=== PATIENT | female | born 1945 | race Caucasian/White ===

== ENCOUNTER 2016-12-06 20:47 | Emergency (ER) | payer BC ==
[2015-08-22 13:26] VITALS: BMI 28.2
[~2016-12-06 20:47] MED LIST: ABILIFY15 MG PO; ANASTROZOLE1 MG PO; CITRACAL + D E1 EACH PO; DESERYL100 MG PO; DIGESTIVE ENZYME; HERBALIFE; HYDROCODONE-APA1 TAB PO; KLONOPIN0.5 MG PO; MELATONIN 3 MG1 TAB PO; POTASSIUM99 M1 PO; PROBIOTIC1 EAC1 PO; PROTONIX40 MG PO; VIIBRYD40 MG PO; VITAMIN D5000 UNIT PO
[2016-12-06 21:53] LABS: BASOPHILS 0.5 % (0.0-2.0); HEMATOCRIT 36.8 % (36.0-48.0); HEMOGLOBIN 11.8 g/dL (12-16); IMMATURE GRANULOCYTES 0.2 % (0-5); LYMPHOCYTES 25.8 % (15-50); MCH 30.6 pg (26.0-34.0); MCHC 32.1 g/dL (31.0-37.0); MCV 95.6 fL (80.0-100.0); MEAN PLATELET VOLUME 9.9 fL (7.4-10.4); MONOCYTES 10.9 % (2-11); NEUTROPHILS 46.6 % (40-80); PLATELET COUNT 253 10x3/uL (130-400); RBC 3.85 10x6/uL (4.00-5.40); RDW 14.9 % (11.5-14.5); WBC 5.7 10x3/uL (4.8-10.8)
[2016-12-06 22:01] LABS: ALBUMIN 3.4 g/dL (3.4-5.0); ANION GAP 14.5 mmol/L (8-16); BILIRUBIN - TOTAL 0.2 mg/dL (0.2-1.3); CALCIUM 9.1 mg/dL (8.5-10.1); CARBON DIOXIDE 25.6 mmol/L (21.0-32.0); CREATININE - SERUM 1.3 mg/dL (0.6-1.3); MAGNESIUM - SERUM 1.7 mg/dL (1.8-2.4); POTASSIUM - SERUM 4.1 mmol/L (3.5-5.1); PROTEIN - SERUM 8.1 g/dL (6.4-8.2)
[2016-12-06 23:49] LABS: APPEARANCE CLOUDY (CLEAR); BILIRUBIN NEGATIVE (NEGATIVE); COLOR YELLOW (YELLOW); GLUCOSE NEGATIVE (NEGATIVE); KETONE NEGATIVE (NEGATIVE); LEUKOCYTE ESTERASE 2+ (NEGATIVE); NITRITE NEGATIVE (NEGATIVE); PROTEIN TRACE mg/dL (NEGATIVE); UROBILINOGEN NORMAL (NORMAL)
[2016-12-06 23:50] LABS: BACTERIA MODERATE /hpf (NONE SEEN); EPITHELIAL CELLS 0-5 /hpf (0-5); WHITE CELLS - URINE >50 /hpf (0-5)
== END 2016-12-07 01:05 | disposition home or self-care (01) ==
LOC: D.ER 20:47
PROVIDERS: Emergency Medicine
DX: R10.9 Unspecified abdominal pain (principal); K59.00 Constipation, unspecified; C50.919 Malignant neoplasm of unspecified site of unspecified female breast; F32.9 Major depressive disorder, single episode, unspecified

== ENCOUNTER → 2017-08-23 14:09 | Outpatient (CLI) | payer BC ==
[2015-08-22 13:26] VITALS: BMI 28.2
[~2017-08-23 14:09] MED LIST changes: +BUPROPION HCL100 MG PO; +LATUDA40 MG PO; +MERTAZAPINE PO; +PROZAC40 MG PO; +RELPAX40 MG PO; +VOLTAREN75 MG PO; +ZOFRAN4 MG
== END | disposition home or self-care (01) ==
LOC: D.LABREF 14:09
DX: R19.7 Diarrhea, unspecified (principal)

== ENCOUNTER 2017-08-27 19:25 | Emergency (ER) | payer BC ==
[2015-08-22 13:26] VITALS: BMI 28.2
[~2017-08-27 19:25] MED LIST changes: -BUPROPION HCL100 MG PO; -LATUDA40 MG PO; -MERTAZAPINE PO; -PROZAC40 MG PO; -RELPAX40 MG PO; -VOLTAREN75 MG PO; -ZOFRAN4 MG
[2017-08-27 20:32] LABS: HEMATOCRIT 37.1 % (36.0-48.0); HEMOGLOBIN 12.3 g/dL (12-16); MCH 31.2 pg (26.0-34.0); MCHC 33.2 g/dL (31.0-37.0); MCV 94.2 fL (80.0-100.0); MEAN PLATELET VOLUME 10.1 fL (7.4-10.4); PLATELET COUNT 234 10x3/uL (130-400); RBC 3.94 10x6/uL (4.00-5.40); WBC 10.6 10x3/uL (4.8-10.8)
[2017-08-27 20:56] LABS: ALBUMIN 3.4 g/dL (3.4-5.0); ANION GAP 15.7 mmol/L (8-16); BILIRUBIN - TOTAL 0.3 mg/dL (0.2-1.3); CALCIUM 10.2 mg/dL (8.5-10.1); CARBON DIOXIDE 22.8 mmol/L (21.0-32.0); CREATININE - SERUM 1.8 mg/dL (0.6-1.3); POTASSIUM - SERUM 4.5 mmol/L (3.5-5.1); PROTEIN - SERUM 7.9 g/dL (6.4-8.2)
[2017-08-27 21:01] LABS: EOSINOPHILS 42 % (0-7); LYMPHOCYTES 16 % (15-50); MONOCYTES 7 % (2-11); NEUTROPHILS 34 % (40-80); PLATELET ESTIMATE NORMAL
[2017-08-27 21:54] LABS: APPEARANCE HAZY (CLEAR); BILIRUBIN NEGATIVE (NEGATIVE); COLOR YELLOW (YELLOW); GLUCOSE NEGATIVE (NEGATIVE); KETONE NEGATIVE (NEGATIVE); NITRITE NEGATIVE (NEGATIVE); PROTEIN TRACE mg/dL (NEGATIVE); UROBILINOGEN NORMAL (NORMAL)
[2017-08-27 21:56] LABS: RED CELLS - URINE 0-5 /hpf (0-5)
[2017-08-27 21:58] LABS: BACTERIA MANY /hpf (NONE SEEN); EPITHELIAL CELLS 0-5 /hpf (0-5)
== END 2017-08-28 00:04 | disposition home or self-care (01) ==
LOC: D.ER 19:25
PROVIDERS: Emergency Medicine Emergency Medical Services
DX: K52.9 Noninfective gastroenteritis and colitis, unspecified (principal)

== ENCOUNTER → 2017-09-18 12:34 | Outpatient (CLI) | payer BC ==
[2015-08-22 13:26] VITALS: BMI 28.2
[~2017-09-18 12:34] MED LIST changes: +BUPROPION HCL100 MG PO; +LATUDA40 MG PO; +MERTAZAPINE PO; +PROZAC40 MG PO; +RELPAX40 MG PO; +VOLTAREN75 MG PO; +ZOFRAN4 MG
== END | disposition home or self-care (01) ==
LOC: D.RAD 12:34
DX: K59.00 Constipation, unspecified (principal)

== ENCOUNTER 2017-09-26 16:26 | Inpatient (IN) | payer MEDICARE, BC ==
[~2017-09-26] VITALS: Ht 162.6 cm; Wt 74.1 kg
[~2017-09-26 16:26] MED LIST changes: -BUPROPION HCL100 MG PO; -LATUDA40 MG PO; -MERTAZAPINE PO; -PROZAC40 MG PO; -RELPAX40 MG PO; -VOLTAREN75 MG PO; -ZOFRAN4 MG
[2017-09-26] MEDS ORDERED: BUPROPION HCL100 MG PO (22:54)
[2017-09-26] MEDS ORDERED: PROZAC40 MG PO (22:56)
[2017-09-26] MEDS ORDERED: VOLTAREN75 MG PO (22:57)
--- NOTE | 2017-09-26 23:19 | NUR ---
CALLED ER ADMISSIONS TO HAVE VALUABLES LOCKED UP FOR PT...WAS TOLD THAT NO ONE WILL HAVE ACCESS TO SAFE TILL 9AM. PT INFORMED.
[2017-09-26 23:20] VITALS: BP 122/78; BMI 26.5
[2017-09-26] MEDS ORDERED: MERTAZAPINE PO (23:20)
--- NOTE | 2017-09-26 23:33 | NUR ---
RN NOTE: ADMISSION ASSESSMENT COMPLETE.
--- NOTE | 2017-09-27 00:39 | NUR ---
PATIENT ADMITED FROM ER, STABLE. C/O OF LOOSE BM AND POSSIBLE UTI. BED ALARM ON, SCD's ON, BED IN LOWEST LOCK POSITION, CALL LIGHT WITHIN REACH, x3 BED RAILS UP, USES BEDPAN FOR BMs AND VOIDS. NO NEEDS NOTED AT THIS TIME
[2017-09-27 05:17] LABS: BASOPHILS 0 % (0-2); HEMATOCRIT 32.9 % (36.0-48.0); HEMOGLOBIN 10.5 g/dL (12-16); IMMATURE GRANULOCYTES 0.3 % (0-5); LYMPHOCYTES 11.9 % (15-50); MCH 29.6 pg (26.0-34.0); MCHC 31.9 g/dL (31.0-37.0); MCV 92.7 fL (80.0-100.0); MEAN PLATELET VOLUME 10.6 fL (7.4-10.4); NEUTROPHILS 74.8 % (40-80); RBC 3.55 10x6/uL (4.00-5.40); RDW 13.8 % (11.5-14.5); WBC 7.9 10x3/uL (4.8-10.8)
[2017-09-27 05:18] LABS: PLATELET COUNT 284 10x3/uL (130-400)
[2017-09-27 05:26] LABS: CALCIUM 9.5 mg/dL (8.5-10.1); CARBON DIOXIDE 21.3 mmol/L (21.0-32.0); CREATININE - SERUM 2.2 mg/dL (0.6-1.3); POTASSIUM - SERUM 4.3 mmol/L (3.5-5.1)
--- NOTE | 2017-09-27 07:50 | NUR ---
ASSESSMENT COMPLETE. IV TO L HAND PATENT. NS INFUSING AT 125 CC/HR VIA PUMP. SPLINT/MAGNO WRAP DRESSING IN USE TO L ARM. SPLINT IN USE TO R WRIST. NPO FOR SURGERY TODAY.DENIES ANY NEEDS AT THIS TIME.
[2017-09-27 09:38] VITALS: BP 133/69
[2017-09-27 10:51] VITALS: Ht 162.6 cm; Wt 74.1 kg
--- NOTE | 2017-09-27 12:00 | NUR ---
NO CHANGES NOTED AT PRESENT. AWAITING SURGERY. DENIES ANY NEEDS AT THIS TIME.
[2017-09-27 13:41] VITALS: BP 121/68
--- NOTE | 2017-09-27 15:00 | NUR ---
OFF FLOOR TO SURGERY VIA BED. BELONGINGS IN CLOSET PER PATIENT REQUEST.
[2017-09-27 15:51] VITALS: BP 136/70
[2017-09-27 17:05] VITALS: BP 149/112
--- NOTE | 2017-09-27 17:10 | NUR ---
RETURNED TO ROOM FROM RECOVERY ROOM VIA BED. IV TO R FOOT PATENT. MAGNO WRAP DRESSING TO LEFT ARM. SLING IN USE TO LEFT ARM. SCD IN USE TO R LEG. BP CUFF IN USE TO LEFT LEG.
--- NOTE | 2017-09-27 18:00 | NUR ---
VSS. EATING DINNER. DENEIS ANY NEEDS AT THIS TIME.
--- NOTE | 2017-09-27 18:40 | NUR ---
LATE ENTRY- OPERATIVE DAY, RETURNED TO ROOM LATE PM. PAIN MANGEMENT. CM CONSULT RECEIVED. CM WILL F/U IN AM.
--- NOTE | 2017-09-27 19:15 | NUR ---
RECEIVED CARE FROM DAY NURSE. PT IN HIGH FOWLERS POSITOIN. IV TO RIGHT FOOT PATENT. LEFT ARM IN MAGNO WRAP AND SLING. RIGHT ARM IN BRACE. REQUEST NIGHT MEDS SOON POSSIBLE. NO OTHER NEEDS VOICED AT THIS TIME. CALL LIGHT AT SIDE.
[2017-09-27 20:00] VITALS: BP 120/81
[2017-09-28] VITALS: BP 104/65
--- NOTE | 2017-09-28 02:57 | NUR ---
PT LYING IN BED IN LOW FOWLERS POSITION. EYES CLOSED. RESP EVEN AND UNLABORED. CALL LIGHT AT SIDE.
[2017-09-28 04:00] VITALS: BP 129/65
--- NOTE | 2017-09-28 07:40 | NUR ---
ASSESSMENT COMPLETE. IV TO R FOOT PATENT. NS INFUSING AT KVO VIA PUMP. MAGNO WRAP DRESSING C/D/I TO L ARM. BRACE IN USE TO R ARM. HAVING LOOSE STOOLS. REFUSING TO WEAR SCD'S. DENIES ANY NEEDS AT THIS TIME.
[2017-09-28 08:15] VITALS: BP 145/65
--- NOTE | 2017-09-28 09:55 | NUR ---
ZOFRAN GIVEN SLOW IVP FOR COMPLAINT OF "UPSET STOMACH."
--- NOTE | 2017-09-28 12:00 | NUR ---
NO CHANGES NOTED AT PRESENT.
[2017-09-28 12:41] VITALS: BP 176/71
--- NOTE | 2017-09-28 13:24 | NUR ---
LATE ENTRY [id number] PATIENT'S FRIEND, MS JULIETH LIMA, LEFT A NOTE FOR CM TO CALL. SHE IS CONCERNED THAT THE PATIENT WILL BE DISCHARGED TO HOME. SHE LIVES ALONE. HER FAMILY IS IN [place]. HER DAUGHTER HAS SOME MEDICAL ISSUES HERSELF. SHE HAD DISCUSSED WITH THE PATIENT HER GOING TO [facility] FOR SKILLED CARE. CM ADVISED I WOULD SPEAK WITH THE PATIENT AND HER FAMILY TO DETERMINE THE D/C PLAN. MS SEXTON STATES SHE HAS PLACED THE FAMILY CONTACT INFORMATION ON THE BOARD IN THE PATIENT'S ROOM. JULIETH LIMA CELL [phone] HOME [phone]. CM TO FOLLOW. [phone] HDEZ ON HIS ROUNDS.
--- NOTE | 2017-09-28 15:00 | NUR ---
DENIES ANY NEEDS AT THIS TIME.
[2017-09-28 16:40] VITALS: BP 149/56
--- NOTE | 2017-09-28 17:00 | NUR ---
NOT WANTING TO EAT DINNER. STATES THAT EVERYTHING SHE EATS RUNS THROUGH HER CAUSING DIARRHEA. REPORTS HAVING CHRONIC DIARRHEA SINCE .
[2017-09-28 20:00] VITALS: BP 146/66
--- NOTE | 2017-09-28 21:46 | NUR ---
REC'D LYING IN BED. ALERT AND ORIENTED X4. DENIED PAIN AT THIS TIME. NO DISTRESS NOTED. WAS ON THE BEDPAN TOOK OFF. INSTRUCTED TO CALL IF NEEDED ANYTHING, VERBALIZED UNDERSTANDING. BED LOW, LOCKED, CALL LIGHT IN REACH. WILL CONT TO MONITOR.
--- NOTE | 2017-09-29 03:24 | NUR ---
PT RESTING QUIETLY, EYES CLOSED. RESP EVEN, UNLABORED. NO DISTRESS NOTED. CONTINUE [facility] COMMISSIONER'S PLAN OF CARE.
--- NOTE | 2017-09-29 07:15 | NUR ---
REPORT RECEIVED, ASSUMED CARE OF PT. RESTING WITH EYES SHUT, EASILY AROUSED. NO NEEDS VOICED AT THIS TIME. R FOOT IV INFUSING FLUIDS ORDERED, DRSG C/D/I. BED IN LOWEST POSITION, SIDE RAILS UP X 2, CALL LIGHT WITHIN REACH.
[2017-09-29 08:10] VITALS: BP 117/69
[2017-09-29] MEDS ORDERED: HYDROCODONE-APA1 TAB PO (08:23)
--- NOTE | 2017-09-29 09:39 | NUR ---
Is the patient Alert and Oriented? Yes 0 * How many steps to enter\exit or inside your home? NONE 0 * PCP DR MARTINEZ 0 * Pharmacy [facility] 0 * Preadmission Environment Home Alone 0 * ADLs Independent 0 * Equipment None 0 * Other Equipment N/A 0 * List name and contact numbers for known caregivers / representatives who currently or will assist patient after discharge: HAS A DAUGHTER AND SON IN LAW IN [place] 0 * Community resources currently utilized Home Health 0 * Please name any agencies selected above. [facility] 0 * Additional services required to return to the preadmission environment? Yes 0 * Can the patient safely return to the preadmission environment? No 0 * Has this patient been hospitalized within the prior 30 days at any hospital? No 0
--- NOTE | 2017-09-29 09:42 | NUR ---
CM MET WITH PATIENT AT THE BEDSIDE. SHE FEELS SHE CANNOT MANAGE AT HOME POST DISCHARGE SHE LIVES ALONE. SHE HAD SUFFERED A SHOULDER INJURY TO THE RIGHT SHOULDER AND WAS RECEIVING HOME HEALTH PHYSICAL THERAPY W/ [facility]. HER DAUGHTER AND SON IN LAW LIVE IN [place]. MR SAUL MATTA, SON IN LAW, HAD CALLED AND LEFT A MESSAGE 09/28/17 PM. HIS CONTACT PHONE NUMBER IS [phone]. THE PATIENT STATES CM CAN SPEAK WITH HIM. PCP- DR NERI MARTINEZ. [facility] MUSE SHE WOULD LIKE TO GO TO [facility] AT DISCHARGE. TC TO [facility] THIS AM. LEFT VOICE MAIL FOR [facility]. FAXED REFERRAL. AWAIT DECISION.
[2017-09-29 11:23] VITALS: BP 144/63
--- NOTE | 2017-09-29 13:37 | NUR ---
NUTRITION F/U CHART REVIEWED. PT VISIT. PT REPORTS DIARRHEA SINCE JUL. REQUESTED PEDIALYTE STATING SHE CAN NOT EAT "EVERYTHING GOES RIGHT THRU ME AND THE NURSES DON'T LIKE IT". PT ALSO REPORTS SHE HAS HAD TEST'S RUN WITH NO DX OF YET. PROVIDED PEDIALYTE. WILL MONITOR PT PROGRESS. NOW ASSESSED AT NUTRITIONAL RISK. NUTRITIONAL NEEDS EST USING IBW. [phone] KCAL, 55-[address] RD FOLLOWING
--- NOTE | 2017-09-29 17:13 | NUR ---
LATE ENTRY 1258 TC TO PATIENT' SON IN LAW , J. SITES , AT [phone]. NO ANSWER. LEFT VOICE MAIL. [facility] TO UPDATE SON IN LAW ON D/C PLAN. PATIENT WAS INITIALLY DECLINED FOR [facility]. THEY DO NOT ACCEPT [facility]. [facility] SPOKE WITH THE PATIENT. SHE ALSO HAS MEDICARE A. EL[facility]IA CALLED TO [facility]ISE [facility]. 1500 REC CB FROM [facility]. ADDITIONAL NOTES FAXED FROM THERAPIES. SHE WILL ADVISE IN THE AM.
--- NOTE | 2017-09-29 19:30 | NUR ---
RECIEVED SHIFT REPORT. PT IS LYING IN BED. ALERT AND ORIENTED AND ABLE TO VERBALIZE NEEDS. IV IS PATENT AND FLUIDS ARE RUNNING PER ORDER. O2 @ 2 PER NASAL CANNULA. PT IS AMBULATORY WITH ASSISTANCE. SCD'S OFF AT THIS TIME PER PT REQUEST. DRESSING TO LEFT WRIST C/D/I. BRACE NOTED TO RIGHT WRIST. PT STATES PAIN IS 2/10. NO NEEDS ARE VERBALIZED AT THIS TIME. WILL CONTINUE TO MONITOR. SIDE RAILS ARE UP X 2. BED IS IN LOWEST POSITION. BED ALARM IS ON FOR SAFETY. CALL LIGHT IS WITHIN REACH.
[2017-09-29 20:00] VITALS: BP 132/89
--- NOTE | 2017-09-29 21:27 | NUR ---
SHIFT ASSESSMENT COMPLETED. NIGHT MEDS GIVEN WITH NO PROBLEMS. NO NEEDS ARE VOICED. WILL MONITOR. SIDE RAILS X 2. BED LOW. BED ALARM ON. CALL LIGHT IN REACH.
[2017-09-30 04:00] VITALS: BP 122/80
--- NOTE | 2017-09-30 09:15 | NUR ---
REPORT RECIEVED ASSUMED CARE. PATIENT IN BED WITH IV INTACT. NO COMPLAINTS AT THIS TIME. [facility]
[2017-09-30 09:30] VITALS: BP 162/79
--- NOTE | 2017-09-30 11:45 | NUR ---
PATIENT STILL HAVING DIARRHEA. STATED SHE CALLED DR. VARGHESE OFFICE AND LEFT A MESSAGE BC THE DIARRHEA SHE HAS IS CHRONIC AND THEY HAVE BEEN WORKING ON IT. IV INTACT. DRESSING TO RIGHT ARM CDI. NO COMPLAINTS OR PROBLEMS. CALL LIGHT WITHIN REACH.
[2017-09-30 12:15] VITALS: BP 100/82
[2017-09-30 16:08] VITALS: BP 128/69
--- NOTE | 2017-09-30 18:31 | NUR ---
PATIENT IN BED WITH IV INTACT. NO COMPLAINTS AT THIS TIME. CALL LIGHTW ITHIN REACH.
--- NOTE | 2017-09-30 19:25 | NUR ---
RECIEVED SHIFT REPORT. PT IS LYING IN BED. ALERT AND ORIENTED AND ABLE TO VERBALIZE NEEDS. IV IS PATENT AND FLUIDS ARE RUNNING PER ORDER. O2 @ 2 PER NASAL CANNULA. DRESSING TO LEFT WRIST C/D/I. BRACE TO RIGHT WRIST. PT IS AMBULATORY WITH ASSISTANCE. PT REQUESTS SCD'S OFF AT THIS TIME DUE TO FREQUENT DIARRHEA. PT STATES PAIN IS 2/10. NO NEEDS ARE VERBALIZED AT THIS TIME. WILL CONTINUE TO MONITOR. SIDE RAILS ARE UP X 2. BED IS IN LOWEST POSITION. BED ALARM IS ON FOR SAFETY. CALL LIGHT IS WITHIN REACH.
[2017-09-30 19:30] VITALS: BP 130/53
--- NOTE | 2017-09-30 21:26 | NUR ---
SHIFT ASSESSMENT COMPLETED. NIGHT MEDS GIVEN WITH NO PROBLEMS. PT REQUESTING PRN NORCO FOR PAIN 01/17. ADMINISTERED PER ORDER. DENIES FURTHER NEEDS. WILL MONITOR. SIDE RAILS X 2. BED LOW. BED ALARM ON. CALL LIGHT IN REACH.
[2017-10-01 03:30] VITALS: BP 149/77
--- NOTE | 2017-10-01 07:16 | NUR ---
Patient to discharged to [facility] this AM and they will picking tech at 10:30 to skilled bed. CM will follow and assist as needed with discharge planning needs
[2017-10-01 07:52] VITALS: BP 131/66
--- NOTE | 2017-10-01 09:33 | NUR ---
REPORT CALLED TO AISHA CONROY'Deny.
--- NOTE | 2017-10-01 09:47 | NUR ---
R FOOT IV D/C'D, WALTER C/D/I. DISCHARGE INSTRUCTIONS GIVEN TO PT, VERBALIZED UNDERSTANDING AND SIGNED.
--- NOTE | 2017-10-01 10:58 | NUR ---
PT LEFT FACILITY WITH [facility] VIA WHEELCHAIR, PERSONAL BELONGINGS WITH PT.
--- NOTE | 2017-12-13 13:11 | OP ---
PATIENT NAME: SAULO RICHARD MEDICAL RECORD: [id number] :46 LOCATION:D.[facility] ADMISSION DATE:09/28/17 SURGEON: SAUL HDEZ MD DATE OF OPERATION: 09/27/2017 PREOPERATIVE DIAGNOSIS: Left distal radius fracture. POSTOPERATIVE DIAGNOSIS: Left distal radius fracture. PROCEDURE: Open reduction internal fixation of left distal radius fracture. SURGEON: Saul Hdez MD ANESTHESIA: General. INTRAOPERATIVE COMPLICATIONS: None. SUMMARY OF PATHOLOGIC FINDINGS: The patient had a very reducible distal radius fracture that held nicely with the volar plate from Christopher. OPERATIVE SUMMARY IN DETAIL: After obtaining the appropriate preoperative orthopedic surgery consent as well as anesthetic consultation, evaluation and clearance, the patient was brought to the operating room and placed on the table in supine position. After general laryngeal mask airway was administered, tourniquet was placed about the proximal aspect of the left upper extremity. Left upper extremity was then prepped and draped in routine sterile fashion. The arm was elevated and exsanguinated, tourniquet inflated to 250 mmHg. Curvilinear incision was made from the mid palmar crease of the arm and keeping with Ollie's volar approach. Dissection was carried down to both the flexor carpal radialis as well as the transverse carpal ligament. Transverse carpal ligament was incised in its entirety with visual protection of the median nerve. Dissection was then carried down and the median nerve as well as wrist flexors were carefully retracted. The fracture was clearly identified. Reduction maneuver was performed. The volar plate from [place] was then put into place using fluoroscopic guidance. A serial and sequential drill and fill technique was used using a combination of both compression and locking screws. Final radiographs were taken and submitted for radiologist's review. At this point, the wound was copiously irrigated and closure was achieved with 2-0 Vicryl followed by 4-0 Prolene in running fashion. Sterile dressings were applied. A volar splint was applied. Tourniquet was deflated. The patient was awakened, taken to recovery room in stable condition. All final needle and sponge counts were correct. TRANSINT:[id number] Voice Confirmation ID: [id number] DOCUMENT ID: [id number] SAUL HDEZ MD at 1311 CC: [id number] DICTATION DATE: 12/08/17 0943 GENERAL UTILITY MAINTENANCE REPAIRER: 12/08/17 1258 DIS IN 10/01/17 [facility] [address] [place] [address]
== END 2017-10-01 10:58 | DRG 512 ==
LOC: D.ER 16:26 → OBSVTIME 21:08 → D.MS 21:08
PROVIDERS: Family Medicine; ADMIT Orthopaedic Surgery
PROC: 0PSH04Z Reposition Right Radius with Internal Fixation Device, Open Approach (ICD-10-PCS; principal; 2017-09-27 15:00)
DX: S52.501A Unspecified fracture of the lower end of right radius, initial encounter for closed fracture (principal); W19.XXXA Unspecified fall, initial encounter; Z91.81 History of falling; Y93.9 Activity, unspecified; Y92.009 Unspecified place in unspecified non-institutional (private) residence as the place of occurrence of the external cause; G62.9 Polyneuropathy, unspecified; N18.9 Chronic kidney disease, unspecified

== ENCOUNTER 2017-11-11 09:07 | Emergency (ER) | payer MEDICARE, BC ==
[2017-09-27 10:51] VITALS: BMI 26.4
[~2017-11-11 09:07] MED LIST changes: +BUPROPION HCL100 MG PO; +MERTAZAPINE PO; +PROZAC40 MG PO; +VOLTAREN75 MG PO
[2017-11-12] MEDS ORDERED: ZOFRAN4 MG (18:19)
[2017-11-12] MEDS ORDERED: LATUDA40 MG PO (19:24)
[2017-11-12] MEDS ORDERED: RELPAX40 MG PO (19:25)
== END 2017-11-11 12:25 | disposition home or self-care (01) ==
LOC: D.ER 09:07
DX: S16.1XXA Strain of muscle, fascia and tendon at neck level, initial encounter (principal); W19.XXXA Unspecified fall, initial encounter; Y93.89 Activity, other specified; Y92.019 Unspecified place in single-family (private) house as the place of occurrence of the external cause; S39.012A Strain of muscle, fascia and tendon of lower back, initial encounter

== ENCOUNTER 2017-11-12 11:01 | Inpatient (IN) | payer MEDICARE, BC ==
[~2017-11-12] VITALS: Ht 162.6 cm; Wt 69.9 kg
--- NOTE | ~2017-11-12 | CN ---
PATIENT NAME:SAULO RICHARD MEDICAL RECORD: [id number] : 47 LOCATION:[facility] ADMIT DATE: 11/12/17 ACCOUNT: [id number] CONSULTING PHYSICIAN: NERI MARTINEZ MD REFERRING PHYSICIAN: SAUL HDEZ MD DATE OF CONSULTATION: 11/12/2017 DATE OF CONSULTATION: 11/12/2017 REASON FOR CONSULTATION: Medical management. HISTORY OF PRESENT ILLNESS: This is a 72-year-old female who was seen in Dr. Hdez's clinic on day of admit for followup of left wrist fracture. She underwent ORIF of left wrist fracture on 09/27/2017 and was discharged to [facility]. She has been back at home now and she fell on 11/11/2017. She has complaints of neck pain, back pain, shoulder pain and wrist pain. X-rays at Dr. Hdez's office showed re-fracture of the left wrist and L-spine x-ray suspicious for a compression fracture. She is admitted for further evaluation and treatment. The left wrist will need revision ORIF. I am consulted for medical management. PAST MEDICAL HISTORY: The patient has a history of significant anxiety, depression, breast cancer, migraine headaches and arthritis. PAST SURGICAL HISTORY: Appendectomy, bilateral mastectomy, ORIF of the fifth finger from a fracture in July 2017 done in [place], and ORIF of left wrist fracture by Dr. Hdez as mentioned above. ALLERGIES: LATEX, NATURAL RUBBER, ATIVAN, CODEINE, LACTOSE, NEURONTIN. HOME MEDICATIONS: Include anastrozole 1 mg once a day, trazodone 300 mg at bedtime, clonazepam 2 mg at bedtime, Wellbutrin 100 mg once a day, Prozac 40 mg 2 pills a day, diclofenac 75 mg twice a day, Relpax 40 mg p.r.n. migraine headaches, Slovan 10/325 q.4 hours p.r.n. pain, Latuda 40 mg once a day, potassium gluconate 99 mg once a day, Citracal Plus D once a day, Zofran 4 mg q.6 hours p.r.n. nausea and vomiting, vitamin D3 5000 units twice a day, and Remeron 15 mg, give 7.5 mg at bedtime. SOCIAL HISTORY: She is , lives alone in [place]. FAMILY HISTORY: Father at 91. He had heart disease and prostate cancer. Mother is . She had heart disease and stroke. HABITS: No tobacco, alcohol or drugs. REVIEW OF SYSTEMS: GENERAL: No major weight changes. HEENT: No particular sinus or allergy problems. RESPIRATORY: No history of emphysema or asthma. She states she does have apnea, but does not use CPAP or BiPAP. CARDIAC: No history of heart disease. GASTROINTESTINAL: She has some reflux and has chronic diarrhea, followed by Dr. Palumbo. GENITOURINARY: No significant problems there. MUSCULOSKELETAL: She has lots of pain in her neck, back, legs. CONSULT REPORT [id number] [facility]IL[facility] NEUROLOGIC: She has migraine headaches. No seizures. PSYCHIATRIC: She has anxiety and depression. PHYSICAL EXAMINATION: VITAL SIGNS: Temperature 98.2, pulse 104, respirations 20, blood pressure 128/48, O2 saturation 100%. GENERAL: She is in some pain. Her IV has not been able to be established. HEENT: Grossly within normal limits. NECK: With generalized tenderness posteriorly, decreased range of motion to right and left turn, flexion and extension. HEART: Regular rate and rhythm. LUNGS: Fairly clear. ABDOMEN: Soft, nontender. EXTREMITIES: Left wrist is in a dressing and she has pain there, also pain in the right shoulder, neck, back. ASSESSMENT: 1. Anxiety. 2. Arthritis. 3. Left wrist fracture. 4. Fall at home with multiple areas of pain. PLAN: She has had an MRI done of the neck so far, it is the only report that is on the chart, showing some degenerative disk changes greatest at C3-C4, through C5-C6 and joint hypertrophy at C5 and C6. Other MRIs are pending. We will continue her usual medications. We will follow her through this hospitalization. Thank you for this consult. TRANSINT:[id number] Voice Confirmation ID: [id number] DOCUMENT ID: [id number] NERI MARTINEZ MD at 1843 CC: [id number] DICTATION DATE: 11/13/17 1349 TIMBER SETTER: 11/13/17 1504 ADM IN [id number] [place] [address]
--- NOTE | ~2017-11-12 | OP ---
PATIENT NAME: SAULO RICHARD MEDICAL RECORD: [id number] :46 LOCATION:D[facility] ADMISSION DATE:11/12/17 SURGEON: SAUL HDEZ MD DATE OF OPERATION: 11/19/2017 PREOPERATIVE DIAGNOSIS: Recurrent distal radius fracture, left. POSTOPERATIVE DIAGNOSIS: Recurrent distal radius fracture, left. PROCEDURE: Revision ORIF of the left distal radius with removal of previously placed hardware. SURGEON: Saul Hdez MD ANESTHESIA: General. INTRAOPERATIVE COMPLICATIONS: None. SUMMARY OF PATHOLOGIC FINDINGS: Unfortunately, when the patient fell and sustained a compression fracture to her back, she also has displaced the hardware thusly requiring a second internal fixation. IMPLANTS USED: Christopher VariAx short plate with a combination of locking and nonlocking screws. OPERATIVE SUMMARY IN DETAIL: After obtaining the appropriate preoperative orthopedic surgery consent as well as anesthetic consultation, evaluation and clearance, the patient was brought to the operating room and placed on the operating table in supine position. After general laryngeal mask airway was administered, tourniquet was placed in the proximal aspect of left upper extremity. Left upper extremity was then prepped and draped in routine sterile fashion. The arm was elevated and exsanguinated, tourniquet inflated to 250 mmHg. Previously utilized incision was utilized again, taken down to the level of the flexor carpi radialis, which was identified. The median nerve was identified. All were retracted and kept safe from harm's way through the case. The previously placed plate was removed. At this point, one of the screws had broken. However, it was identified on fluoro and removed itself. The fragments were then mobilized, rearranged back into a more anatomic position and then the Christopher narrow plate was put into place with a serial and sequential drill and fill technique using both locking and nonlocking screws for the ultimate compression and fixation. Final radiographs were submitted to radiology for review on both AP and lateral planes. Wound was copiously irrigated and closed with 2-0 Vicryl followed by 4-0 Prolene in running fashion. Sterile dressings were applied. The patient was awakened and taken to the recovery room in stable condition. All final needle and sponge counts were correct. TRANSINT:[id number] Voice Confirmation ID: [id number] DOCUMENT ID: [id number] OPERATIVE REPORT [id number] SAULO RICHARD MD, JAMES KEVIN at 1444 CC: [id number] DICTATION DATE: 11/20/17 1218 SPRING ASSEMBLER SUPERVISOR: 11/20/17 1412 DIS IN 11/20/17 [id number] [place] [address]
[2017-11-12 15:14] LABS: BASOPHILS 0 % (0-2); EOSINOPHILS 0.1 % (0-7); HEMATOCRIT 29.1 % (36.0-48.0); HEMOGLOBIN 9.4 g/dL (12-16); IMMATURE GRANULOCYTES 0.6 % (0-5); LYMPHOCYTES 5.8 % (15-50); MCHC 32.3 g/dL (31.0-37.0); MCV 89.8 fL (80.0-100.0); MEAN PLATELET VOLUME 9.4 fL (7.4-10.4); MONOCYTES 4.6 % (2-11); NEUTROPHILS 88.9 % (40-80); RBC 3.24 10x6/uL (4.00-5.40); RDW 16.9 % (11.5-14.5); WBC 13.6 10x3/uL (4.8-10.8)
[2017-11-12 15:19] LABS: PLATELET COUNT 356 10x3/uL (130-400)
[2017-11-12 15:25] LABS: ANION GAP 20.7 mmol/L (8-16); CALCIUM 10.2 mg/dL (8.5-10.1); CARBON DIOXIDE 19.9 mmol/L (21.0-32.0); CREATININE - SERUM 1.8 mg/dL (0.6-1.3); POTASSIUM - SERUM 3.6 mmol/L (3.5-5.1)
[2017-11-12 15:43] VITALS: BP 129/44; BMI 26.5
[2017-11-12 16:50] VITALS: BP 128/48
[2017-11-12] MEDS ORDERED: ZOFRAN4 MG (18:19)
[2017-11-12] MEDS ORDERED: LATUDA40 MG PO (19:24)
[2017-11-12] MEDS ORDERED: RELPAX40 MG PO (19:25)
[2017-11-13 04:00] VITALS: BP 131/62
[2017-11-13 05:19] LABS: BASOPHILS 0.1 % (0-2); EOSINOPHILS 2.1 % (0-7); HEMATOCRIT 28.2 % (36.0-48.0); HEMOGLOBIN 9.1 g/dL (12-16); IMMATURE GRANULOCYTES 0.5 % (0-5); LYMPHOCYTES 15.9 % (15-50); MCH 29.1 pg (26.0-34.0); MCHC 32.3 g/dL (31.0-37.0); MCV 90.1 fL (80.0-100.0); MEAN PLATELET VOLUME 9.4 fL (7.4-10.4); MONOCYTES 10.2 % (2-11); NEUTROPHILS 71.2 % (40-80); PLATELET COUNT 312 10x3/uL (130-400); RBC 3.13 10x6/uL (4.00-5.40); RDW 17.4 % (11.5-14.5); WBC 8.1 10x3/uL (4.8-10.8)
[2017-11-13 05:42] LABS: ANION GAP 13.8 mmol/L (8-16); CALCIUM 9.5 mg/dL (8.5-10.1); CREATININE - SERUM 1.5 mg/dL (0.6-1.3); POTASSIUM - SERUM 3.4 mmol/L (3.5-5.1)
[2017-11-13 05:55] LABS: CARBON DIOXIDE 25.6 mmol/L (21.0-32.0)
[2017-11-13 12:32] VITALS: BP 110/59
[2017-11-13 16:27] VITALS: BP 86/47
[2017-11-14 04:00] VITALS: BP 96/99
[2017-11-14 06:15] LABS: BASOPHILS 0.1 % (0-2); HEMATOCRIT 29.4 % (36.0-48.0); HEMOGLOBIN 9.1 g/dL (12-16); IMMATURE GRANULOCYTES 0.2 % (0-5); MCH 28.6 pg (26.0-34.0); MEAN PLATELET VOLUME 10.1 fL (7.4-10.4); MONOCYTES 8.5 % (2-11); NEUTROPHILS 74.2 % (40-80); PLATELET COUNT 350 10x3/uL (130-400); RBC 3.18 10x6/uL (4.00-5.40); RDW 17.4 % (11.5-14.5); WBC 8.2 10x3/uL (4.8-10.8)
[2017-11-14 06:16] LABS: MCV 92.5 fL (80.0-100.0)
[2017-11-14 06:38] LABS: ANION GAP 13.6 mmol/L (8-16); CALCIUM 9.1 mg/dL (8.5-10.1); CREATININE - SERUM 1.4 mg/dL (0.6-1.3); POTASSIUM - SERUM 3.6 mmol/L (3.5-5.1)
[2017-11-14 08:40] VITALS: BP 99/39
[2017-11-14 12:30] VITALS: BP 109/45
[2017-11-14 16:45] VITALS: BP 97/49
[2017-11-14 20:00] VITALS: BP 106/45
[2017-11-15 04:00] VITALS: BP 100/45
[2017-11-15 05:48] LABS: BASOPHILS 0.1 % (0-2); HEMATOCRIT 29.7 % (36.0-48.0); HEMOGLOBIN 9.3 g/dL (12-16); IMMATURE GRANULOCYTES 0.2 % (0-5); LYMPHOCYTES 11.3 % (15-50); MCH 28.8 pg (26.0-34.0); MCHC 31.3 g/dL (31.0-37.0); MEAN PLATELET VOLUME 9.9 fL (7.4-10.4); MONOCYTES 7.3 % (2-11); NEUTROPHILS 76.1 % (40-80); PLATELET COUNT 334 10x3/uL (130-400); RBC 3.23 10x6/uL (4.00-5.40); RDW 16.7 % (11.5-14.5); WBC 8.2 10x3/uL (4.8-10.8)
[2017-11-15 06:29] LABS: ANION GAP 12.6 mmol/L (8-16); CALCIUM 9.1 mg/dL (8.5-10.1); CREATININE - SERUM 1.2 mg/dL (0.6-1.3); POTASSIUM - SERUM 3.6 mmol/L (3.5-5.1)
[2017-11-15 08:49] VITALS: BP 109/46
[2017-11-15 11:59] VITALS: BP 107/68
[2017-11-15 20:00] VITALS: BP 128/72
[2017-11-16] VITALS: BP 130/68
[2017-11-16 04:00] VITALS: BP 113/38
[2017-11-16 04:52] LABS: BASOPHILS 0.1 % (0-2); EOSINOPHILS 6.8 % (0-7); HEMATOCRIT 28.5 % (36.0-48.0); IMMATURE GRANULOCYTES 0.3 % (0-5); LYMPHOCYTES 12.4 % (15-50); MCH 28.8 pg (26.0-34.0); MCHC 31.6 g/dL (31.0-37.0); MCV 91.1 fL (80.0-100.0); MEAN PLATELET VOLUME 9.6 fL (7.4-10.4); MONOCYTES 8.2 % (2-11); NEUTROPHILS 72.2 % (40-80); PLATELET COUNT 339 10x3/uL (130-400); RBC 3.13 10x6/uL (4.00-5.40); RDW 16.5 % (11.5-14.5); WBC 7.2 10x3/uL (4.8-10.8)
[2017-11-16 05:12] LABS: ANION GAP 13.3 mmol/L (8-16); CALCIUM 9.1 mg/dL (8.5-10.1); CARBON DIOXIDE 25.4 mmol/L (21.0-32.0); CREATININE - SERUM 1.1 mg/dL (0.6-1.3); POTASSIUM - SERUM 3.7 mmol/L (3.5-5.1)
[2017-11-16 08:15] VITALS: BP 112/50
[2017-11-16 11:59] VITALS: BP 100/37
[2017-11-16 16:12] VITALS: BP 98/43
[2017-11-16 20:00] VITALS: BP 109/55
[2017-11-17 04:00] VITALS: BP 105/45
[2017-11-17 06:21] LABS: BASOPHILS 0.3 % (0-2); EOSINOPHILS 6.1 % (0-7); HEMATOCRIT 29.6 % (36.0-48.0); HEMOGLOBIN 9.3 g/dL (12-16); IMMATURE GRANULOCYTES 0.7 % (0-5); LYMPHOCYTES 17.4 % (15-50); MCH 28.6 pg (26.0-34.0); MCHC 31.4 g/dL (31.0-37.0); MCV 91.1 fL (80.0-100.0); MEAN PLATELET VOLUME 9.9 fL (7.4-10.4); NEUTROPHILS 65.5 % (40-80); PLATELET COUNT 380 10x3/uL (130-400); RBC 3.25 10x6/uL (4.00-5.40); RDW 16.4 % (11.5-14.5)
[2017-11-17 06:45] LABS: ANION GAP 13.6 mmol/L (8-16); CALCIUM 9.4 mg/dL (8.5-10.1); CARBON DIOXIDE 24.8 mmol/L (21.0-32.0); CREATININE - SERUM 1.1 mg/dL (0.6-1.3); POTASSIUM - SERUM 3.4 mmol/L (3.5-5.1)
[2017-11-17 08:09] VITALS: BP 109/45
[2017-11-17 12:03] VITALS: BP 124/44
[2017-11-17 16:10] VITALS: BP 113/43
[2017-11-17 20:00] VITALS: BP 180/39
[2017-11-18 11:46] VITALS: BP 121/60
[2017-11-18 12:52] VITALS: Ht 162.6 cm; Wt 69.9 kg
[2017-11-18 16:04] VITALS: BP 111/47
[2017-11-18 21:34] VITALS: BP 104/53
[2017-11-19 01:01] VITALS: BP 94/49
[2017-11-19 05:45] LABS: HEMATOCRIT 27.6 % (36.0-48.0); HEMOGLOBIN 8.7 g/dL (12-16); MCH 28.5 pg (26.0-34.0); MCHC 31.5 g/dL (31.0-37.0); MCV 90.5 fL (80.0-100.0); MEAN PLATELET VOLUME 9.1 fL (7.4-10.4); RBC 3.05 10x6/uL (4.00-5.40); RDW 16.2 % (11.5-14.5); WBC 4.8 10x3/uL (4.8-10.8)
[2017-11-19 06:33] LABS: ANION GAP 12.1 mmol/L (8-16); CALCIUM 9.2 mg/dL (8.5-10.1); CREATININE - SERUM 1.1 mg/dL (0.6-1.3); POTASSIUM - SERUM 3.1 mmol/L (3.5-5.1)
[2017-11-19 08:16] VITALS: BP 97/42
[2017-11-19 12:45] VITALS: BP 122/40
[2017-11-19 15:08] VITALS: BP 134/74
[2017-11-19 20:00] VITALS: BP 96/43
[2017-11-19 20:09] LABS: % SATURATION 23 % (15-55); IRON 41 ug/dl (35-150); TOTAL IRON BIND CAPACITY 174 ug/dl (260-445); UNSAT IRON BIND CAPACITY 133 ug/dl (150-375)
[2017-11-20] VITALS: BP 102/48
[2017-11-20 04:00] VITALS: BP 128/63
[2017-11-20 09:03] VITALS: BP 112/69
== END 2017-11-20 12:25 | DRG 511 ==
LOC: D.M2 11:01 → D.MS 12:45
PROVIDERS: Family Medicine; Neurological Surgery; Orthopaedic Surgery
PROC: 0PU43JZ Supplement Thoracic Vertebra with Synthetic Substitute, Percutaneous Approach (ICD-10-PCS; 2017-11-15)
PROC: 0PS43ZZ Reposition Thoracic Vertebra, Percutaneous Approach (ICD-10-PCS; principal; 2017-11-15 10:00)
PROC: 0PSJ04Z Reposition Left Radius with Internal Fixation Device, Open Approach (ICD-10-PCS; 2017-11-19)
DX: S62.102A Fracture of unspecified carpal bone, left wrist, initial encounter for closed fracture (principal); S22.089A Unspecified fracture of T11-T12 vertebra, initial encounter for closed fracture; F41.9 Anxiety disorder, unspecified; F32.9 Major depressive disorder, single episode, unspecified; R19.7 Diarrhea, unspecified; M54.2 Cervicalgia; W19.XXXA Unspecified fall, initial encounter